=== PATIENT | male | born 1945 | race Caucasian/White ===

== ENCOUNTER 2019-03-25 10:09 | Emergency (ER) | payer MEDICARE, BC ==
[2019-03-25] MEDS ORDERED: Levofloxacin 500 MG Tab PO ONE (11:09)
[2019-03-25] MEDS ORDERED: Ondansetron 4 MG/2 ML SDV IVPUSH ONE (11:10)
[2019-03-25] MEDS ORDERED: Acetaminophen 325 MG Tab PO PRN (11:10)
--- NOTE | 2019-03-25 11:11 | EDM.PDOC ---
ED HPI GENERAL MEDICAL PROBLEM - General Chief Complaint: Genitourinary Problem Stated Complaint: POSS UTI Time Seen by Provider: 03/25/19 11:05 Source of Information: Reports: Patient History Limitations: Reports: No Limitations - History of Present Illness INITIAL COMMENTS - FREE TEXT/NARRATIVE: 73-year-old male presents to the ED with acute onset of flulike symptoms yesterday. She awoke with a migraine headache and then ached all over decreased appetite hardly eat at all yesterday and then started to have severe dysuria urgency and frequency last evening. He estimates that he was up 15 times during the night to void. He has severe urgency and incontinence unfortunately due to the severity of the urgency. He did appreciate the urine did appear slightly bloody in color. He had fever and chills overnight. Remains nauseated this morning. Hasn't eaten yet today. Patient is on long-term Coumadin therapy for one Leiden factor mutation. He has had multiple DVTs and PE once. Onset: Gradual Onset Date: 03/24/19 (Awoke with a migraine and flulike symptoms yesterday. He presents he had a low-grade fever today and has a definite fever.) Duration: Day(s):, Getting Worse (1 day.) Location: Reports: Abdomen, Generalized (Suprapubic abdominal pain.) Quality: Reports: Ache (And anorexia since yesterday.) Severity: Severe (Severe urgency and frequency.) Improves with: Reports: None Worsens with: Reports: None Context: Denies: Activity, Exercise, Lifting, Sick Contact, Trauma, Other Associated Symptoms: Reports: Fever/Chills, Headaches, Loss of Appetite, Malaise , Nausea/Vomiting, Weakness. Denies: Confusion, Chest Pain, Cough, cough w sputum, Diaphoresis, Rash, Seizure (Nausea without vomiting), Shortness of Breath, Syncope Treatments DIGESTER: Reports: Other (see below) (None.) Penis Pain Score (Numeric/FACES): 2 - Related Data Allergies Allergy/AdvReac Type Severity Reaction Status Date / Time No Known Allergies Allergy Verified 03/25/19 10:20 Home Meds: Home Meds [place] 03/25/19 [History] Cinnamon [Cinnamon Oil] 1 cap PO DAILY 03/25/19 [History] Fish Oil/[place]-3 Fatty Acids [Fish Oil 1,000 MG] 100 gm PO DAILY 03/25/19 [ History] Flaxseed Oil [Flax Oil] 1 cap PO DAILY 03/25/19 [History] Folic Acid 2 mg PO DAILY 03/25/19 [History] Montelukast Sodium [Singulair] 10 mg PO BEDTIME 03/25/19 [History] Omeprazole 20 mg PO DAILY 03/25/19 [History] Onabotulinumtoxina [Botox] 03/25/19 [History] Phenazopyridine HCl [Pyridium] 100 mg PO Q6HR PRN #6 tablet 03/25/19 [Rx] Warfarin Sodium [Coumadin] 7.5 mg PO DAILY 03/25/19 [History] levoFLOXacin [Levaquin] 500 mg PO DAILY #9 tab 03/25/19 [Rx] metFORMIN HCl [Metformin HCl] 100 mg PO BID 03/25/19 [History] Past Medical History HEENT History: Reports: Impaired Vision Cardiovascular History: Reports: Blood Clots/VTE/DVT, High Cholesterol Gastrointestinal History: Reports: GERD Genitourinary History: Reports: UTI, Recurrent Neurological History: Reports: Migraines Endocrine/Metabolic History: Reports: Diabetes, Type II Hematologic History: Reports: Bleeding Disorder Other Hematologic History: 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 He was on Coumadin 7.5 mg daily for many years. - Infectious Disease History Infectious Disease History: Reports: Chicken Pox, Measles, Mumps - Past Surgical History HEENT Surgical History: Reports: LASIK, Oral Surgery Musculoskeletal Surgical History: Reports: Shoulder Surgery Social & Family History - Family History Family Medical History: Noncontributory - Tobacco Use Smoking Status *Q: Former Smoker Used Tobacco, but Quit: Yes Month/Year Tobacco Last Used: 10/1976 - Caffeine Use Caffeine Use: Reports: Coffee - Recreational Drug Use Recreational Drug Use: No - Living Situation & Occupation Living situation: Reports: Occupation: Retired ED ROS GENERAL - Review of Systems Review Of Systems: See Below Constitutional: Reports: Fever, Chills, Malaise, Weakness, Fatigue, Decreased Appetite HEENT: Reports: No Symptoms Respiratory: Reports: No Symptoms Cardiovascular: Reports: Blood Pressure Problem. Denies: Claudication, Dyspnea on Exertion, Edema, Lightheadedness, Orthopnea Endocrine: Reports: Fatigue GI/Abdominal: Reports: Abdominal Pain : Reports: Dysuria, Frequency, Urgency, Other (Suprapubic abdominal pain. He does not make it to the bathroom in time due to the urgency.) Musculoskeletal: Reports: Back Pain Skin: Reports: No Symptoms (Mild low back pain) Neurological: Reports: No Symptoms Psychiatric: Reports: No Symptoms Hematologic/Lymphatic: Reports: No Symptoms Immunologic: Reports: No Symptoms ED EXAM, RENAL/ - Physical Exam Exam: See Below Exam Limited By: No Limitations General Appearance: Alert, WD/WN, Mild Distress, Other (Patient does feel quite warm to palpation. Temperatures 37.4 as recorded by the nurses. Pulse is 97. Pulse oximetry is 97 BP 1 4881.) Eye Exam: Bilateral Eye: Normal Inspection Throat/Mouth: Perioral Cyanosis, Other Head: Atraumatic Neck: Normal Inspection (Tongue and mouth are mildly dry.), Supple, Non-Tender, Full Range of Motion. No: Lymphadenopathy (L), Lymphadenopathy (R) Respiratory/Chest: No Respiratory Distress, Lungs Clear, Normal Breath Sounds, No Accessory Muscle Use, Chest Non-Tender Cardiovascular: Normal Peripheral Pulses, Regular Rate, Rhythm, No Edema, No Gallop, No Murmur, No Rub GI/Abdominal: Normal Bowel Sounds, Soft, No Organomegaly, No Abnormal Bruit, No Mass, Pelvis Stable, Tender, Other (Has had previous laparoscopic cholecystectomy) (Male) Exam: No Hernia Back Exam: Normal Inspection, Full Range of Motion. No: CVA Tenderness (L), CVA Tenderness (R) Extremities: Normal Inspection, Normal Range of Motion, Non-Tender, No Pedal Edema Neurological: Alert, Oriented, CN II-XII Intact, Normal Cognition, Normal Gait Psychiatric: Normal Affect, Normal Mood Skin Exam: Warm, Dry, Intact, Normal Color, No Rash Course - Vital Signs Last Recorded V/S: Last Vital Signs Temp 37.4 C 03/25/19 11:23 Pulse 97 03/25/19 10:17 Resp 16 03/25/19 10:17 BP 148/81 H 03/25/19 10:17 Pulse Ox 97 03/25/19 10:17 - Orders/Labs/Meds Orders: Active Orders 24 hr Category Date Time Status CULTURE BLOOD [BC] Stat Lab 03/25/19 11:30 Received CULTURE BLOOD [BC] Stat Lab 03/25/19 11:50 Received CULTURE URINE [RM] Routine Lab 03/25/19 11:15 Received Acetaminophen [Tylenol] Med 03/25/19 11:10 Active 975 mg PO Q4H PRN Dextrose 5%-0.9% NaCl [Dextrose 5%-Normal Saline] 1,000 Med 03/25/19 11:15 Active ml IV ASDIRECTED Phenazopyridine [Urinary Pain Relief] Med 03/25/19 13:00 Active 95 mg PO TIDPC cefTRIAXone [Rocephin] 2 gm Med 03/25/19 11:15 Active Sodium Chloride 0.9% [Normal Saline] 100 ml IV Q24H Blood Culture x2 Reflex Set [OM.PC] Stat Oth 03/25/19 11:07 Ordered Medication Orders Acetaminophen (Tylenol) 975 mg PO Q4H PRN PRN Reason: Pain Last Admin: 03/25/19 11:23 Dose: 975 mg Dextrose/Sodium Chloride (Dextrose 5%-Normal Saline) 1,000 mls @ 500 mls/hr IV ASDIRECTED [facility] Last Admin: 03/25/19 11:31 Dose: 500 mls/hr Ceftriaxone Sodium 2 gm/ (Sodium Chloride) 100 mls @ 200 mls/hr IV Q24H [facility] Last Admin: 03/25/19 11:31 Dose: 200 mls/hr Phenazopyridine HCl (Urinary Pain Relief) 95 mg PO TIDPC [facility] Last Admin: 03/25/19 11:23 Dose: 95 mg Labs: Laboratory Tests 03/25/19 03/25/19 03/25/19 Range/Units 11:15 11:30 11:30 WBC 12.73 H (4.23-9.07) K/mm3 RBC 4.37 L (4.63-6.08) M/mm3 Hgb 13.2 L (13.7-17.5) gm/dl Hct 37.1 L (40.1-51.0) % MCV 84.9 (79.0-92.2) fl MCH 30.2 (25.7-32.2) pg MCHC 35.6 H (32.2-35.5) g/dl RDW Std Deviation 42.3 (35.1-43.9) fL Plt Count 112 L (163-337) K/mm3 MPV 10.6 (9.4-12.3) fl Neutrophils % (Manual) 77 H (40-60) % Band Neutrophils % 0 (0-10) % Lymphocytes % (Manual) 20 (20-40) % Atypical Lymphs % 0 % Monocytes % (Manual) 3 (2-10) % Eosinophils % (Manual) 0 L (0.8-7.0) % Basophils % (Manual) 0 L (0.2-1.2) Platelet Estimate Adequate RBC Morph Comment Normal PT (9.7-12.0) SECONDS INR Sodium 135 L (136-145) mEq/L Potassium 3.6 (3.5-5.1) mEq/L Chloride 100 (98-107) mEq/L Carbon Dioxide 24 (21-32) mEq/L Anion Gap 14.6 (5-15) BUN 11 (7-18) mg/dL Creatinine 1.4 H (0.7-1.3) mg/dL Est Cr Clr Drug Dosing 50.81 mL/min Estimated GFR (MDRD) 50 (>60) mL/min BUN/Creatinine Ratio 7.9 L (14-18) Glucose 143 H (83-115) mg/dL Lactic Acid (0.4-2.0) mmol/L Calcium 8.3 L (8.5-10.1) mg/dL Total Bilirubin 1.6 H (0.2-1.0) mg/dL AST 15 (15-37) U/L ALT 26 (16-63) U/L Alkaline Phosphatase 54 (46-116) U/L C-Reactive Protein 19.0 H* (<1.0) mg/dL Total Protein 6.7 (6.4-8.2) g/dl Albumin 3.0 L (3.4-5.0) g/dl Globulin 3.7 gm/dL Albumin/Globulin Ratio 0.8 L (1-2) Urine Color Yellow (Yellow) Urine Appearance Slt cloudy H (Clear) Urine pH 6.0 (5.0-8.0) Ur Specific [place] > or = 1.030 (1.005-1.030) Urine Protein 2+ H (Negative) Urine Glucose (UA) Negative (Negative) Urine Ketones 2+ H (Negative) Urine Occult Blood 3+ H (Negative) Urine Nitrite Positive H (Negative) Urine Bilirubin 1+ H (Negative) Urine Urobilinogen 0.2 (0.2-1.0) Ur Leukocyte Esterase 1+ H (Negative) Urine RBC 20-30 H (0-5) /hpf Urine WBC 10-20 H (0-5) /hpf Ur Epithelial Cells 0-5 (0-5) /hpf Urine Bacteria Moderate H (FEW) /hpf Urine Mucus Few (FEW) /hpf 03/25/19 03/25/19 Range/Units 11:30 11:30 WBC (4.23-9.07) K/mm3 RBC (4.63-6.08) M/mm3 Hgb (13.7-17.5) gm/dl Hct (40.1-51.0) % MCV (79.0-92.2) fl MCH (25.7-32.2) pg MCHC (32.2-35.5) g/dl RDW Std Deviation (35.1-43.9) fL Plt Count (163-337) K/mm3 MPV (9.4-12.3) fl Neutrophils % (Manual) (40-60) % Band Neutrophils % (0-10) % Lymphocytes % (Manual) (20-40) % Atypical Lymphs % % Monocytes % (Manual) (2-10) % Eosinophils % (Manual) (0.8-7.0) % Basophils % (Manual) (0.2-1.2) Platelet Estimate RBC Morph Comment PT 16.1 H (9.7-12.0) SECONDS INR 1.51 Sodium (136-145) mEq/L Potassium (3.5-5.1) mEq/L Chloride (98-107) mEq/L Carbon Dioxide (21-32) mEq/L Anion Gap (5-15) BUN (7-18) mg/dL Creatinine (0.7-1.3) mg/dL Est Cr Clr Drug Dosing mL/min Estimated GFR (MDRD) (>60) mL/min BUN/Creatinine Ratio (14-18) Glucose (83-115) mg/dL Lactic Acid 1.8 (0.4-2.0) mmol/L Calcium (8.5-10.1) mg/dL Total Bilirubin (0.2-1.0) mg/dL AST (15-37) U/L ALT (16-63) U/L Alkaline Phosphatase (46-116) U/L C-Reactive Protein (<1.0) mg/dL Total Protein (6.4-8.2) g/dl Albumin (3.4-5.0) g/dl Globulin gm/dL Albumin/Globulin Ratio (1-2) Urine Color (Yellow) Urine Appearance (Clear) Urine pH (5.0-8.0) Ur Specific [place] (1.005-1.030) Urine Protein (Negative) Urine Glucose (UA) (Negative) Urine Ketones (Negative) Urine Occult Blood (Negative) Urine Nitrite (Negative) Urine Bilirubin (Negative) Urine Urobilinogen (0.2-1.0) Ur Leukocyte Esterase (Negative) Urine RBC (0-5) /hpf Urine WBC (0-5) /hpf Ur Epithelial Cells (0-5) /hpf Urine Bacteria (FEW) /hpf Urine Mucus (FEW) /hpf Meds: Medications Generic Name Dose Route Start Last Admin Trade Name Freq PRN Reason Stop Dose Admin Acetaminophen 975 mg 03/25/19 11:10 03/25/19 11:23 Tylenol PO 975 mg Q4H PRN Administration Pain Dextrose/Sodium Chloride 1,000 mls @ 500 mls/hr 03/25/19 11:15 03/25/19 11:31 Dextrose 5%-Normal Saline IV 500 mls/hr ASDIRECTED DREW Administration Ceftriaxone Sodium 2 gm/ 100 mls @ 200 mls/hr 03/25/19 11:15 03/25/19 11:31 Sodium Chloride IV 200 mls/hr Q24H DREW Administration Phenazopyridine HCl 95 mg 03/25/19 13:00 03/25/19 11:23 Urinary Pain Relief PO 95 mg TIDPC DREW Administration Discontinued Medications Generic Name Dose Route Start Last Admin Trade Name Freq PRN Reason Stop Dose Admin Levofloxacin 500 mg 03/25/19 11:09 03/25/19 11:31 Levaquin PO 03/25/19 11:10 500 mg ONETIME ONE Administration Ondansetron HCl 4 mg 03/25/19 11:10 03/25/19 11:31 Zofran IVPUSH 03/25/19 11:11 4 mg ONETIME ONE Administration - Radiology Interpretation Free Text/Narrative:: 73-year-old male presents to the ED with acute onset of flulike symptoms starting yesterday. States he had body aches and he woke with a migraine that went away with Imitrex. He lost his appetite didn't eat hardly at all yesterday. Since 8:00 last night he has voided about 15 times with severe dysuria urgency and frequency. The urgency is bad enough that he sometimes will not make it to the bathroom. This happened to him once in the past. Prostate has been checked yearly and his PSAs remain normal. Apparently has an enlarged prostate. Clinically the patient is febrile. He did have mild chills last night. Still feels nauseated this morning and has not eaten. Plan urinalysis and urine culture. IV will be started he will be given D5 normal saline at 500 mils per hour. He will receive Pyridium 95 mg by mouth. Tylenol 975 mg by mouth for fever relief. Rocephin 2 g IV for initial and Coumadin of urinary tract infection and Levaquin 500 by mouth. A septic workup will be done. - Re-Assessments/Exams Free Text/Narrative Re-Assessment/Exam: 03/25/19 12:42 Lab reveals an elevated white count at 12.73. 77% neutrophils with no band cells reported. Hemoglobin is 13.2 with hematocrit of 37.1. Platelet counts 112,000. PT is 16.1 with an INR subtherapeutic at 1.51. Sodium was 135 with a potassium of 3.6. Chloride is 100 with a bicarbonate 24. Anion gap is 14.6. B1 is 11 with a creatinine of 1.4. GFR is 50. Glucose 143. Lactic acid 1.8. Calcium 8.3. Bilirubin is slightly elevated at 1.6. AST is 15 with an ALT of 26. Alk phosphatase is 54. Elevated bilirubin is due to Gilbert`s syndrome. CRP is markedly elevated at 19.0. Total protein is 6.7 with albumin fraction of 3.0. Urinalysis is slightly cloudy reveals 2+ proteinuria 2+ ketones 3+ occult blood positive nitrate 1+ bilirubin 1+ leukocyte esterase. Slide shows 20-30 RBCs per high-power field and 10-20 WBCs per high-power field with moderate bacteria evident. 03/25/19 12:46 test the findings with the patient. He is advised that systemically has an infection. At this time he would like to try outpatient therapy versus coming into the hospital. Return to the hospital if he develops nausea vomiting or is unable to eat or take keep his medication down. Her Levaquin 500 mg once daily for another 9 days starting tomorrow. Tylenol 650 mg every 4-6 hours necessary for fever relief. Just having a repeat urinalysis done 7 days after finishing antibiotic therapy. Departure - Departure Time of Disposition: 12:47 Disposition: Home, Self-Care 01 Condition: Fair Clinical Impression: Upper urinary tract infection, Prostatitis syndrome - Discharge Information *PRESCRIPTION DRUG MONITORING PROGRAM REVIEWED*: Not Applicable *COPY OF PRESCRIPTION DRUG MONITORING REPORT IN PATIENT JOVANY: Not Applicable Prescriptions: Phenazopyridine HCl [Pyridium] 100 mg PO Q6HR PRN #6 tablet PRN Reason: Relief of dysuria levoFLOXacin [Levaquin] 500 mg PO DAILY #9 tab Instructions: Pyelonephritis, Adult, [id number], Prostatitis, [id number] Referrals: PCP,Not In Area [Primary Care Provider] - Forms: ED Department Discharge Additional Instructions: Evaluation the emergent today in regards to acute onset of flulike symptoms yesterday morning associate with decreased appetite. He then developed significant dysuria urgency and frequency of urine passage last night. On examination you do have a fever in the ED. Lab work reveals an elevated white count at 12.93 and a elevated CRP at 19 suggesting you have a sig significant systemic infection. You are treated in the ED with 2 g of Rocephin and Levaquin 500 mg orally. As discussed with you prefer to try things as an outpatient versus coming into the hospital at this time. Treatment is to try and drink plenty of fluids. Suggest Gatorade or Powerade as it's very similar to IV fluid. He will need a metabolic Levaquin 500 mg once daily for the next tablet due tomorrow morning. Continue Tylenol 650 mg every 4-6 hours needed for fever and body ache relief. Return to the hospital if you develop severe rigors or chills or nausea or vomiting and unable to keep down any medication. Otherwise expect marked improvement in symptoms over the next 48 hours. Of note her Coumadin time today was subtherapeutic at 1.51 but this may be where they want you to be i.e. mildly elevated INR to prevent DVT. Think medication that you are taking i.e. Levaquin will elevate your PT/INR as well Tylenol. It is low enough at this point time that you do not need to have it rechecked in 5 days time. Work should be rechecked in 2 weeks' time. - My Orders Last 24 Hours: My Active Orders 03/25/19 11:07 Blood Culture x2 Reflex Set [OM.PC] Stat 03/25/19 11:10 Acetaminophen [Tylenol] 975 mg PO Q4H PRN 03/25/19 11:15 CULTURE URINE [RM] Routine Dextrose 5%-0.9% NaCl [Dextrose 5%-Normal Saline] 1,000 ml IV ASDIRECTED cefTRIAXone [Rocephin] 2 gm Sodium Chloride 0.9% [Normal Saline] 100 ml IV Q24H 03/25/19 11:30 CULTURE BLOOD [BC] Stat 03/25/19 11:50 CULTURE BLOOD [BC] Stat 03/25/19 13:00 Phenazopyridine [Urinary Pain Relief] 95 mg PO TIDPC - Assessment/Plan Last 24 Hours: My Active Orders 03/25/19 11:07 Blood Culture x2 Reflex Set [OM.PC] Stat 03/25/19 11:10 Acetaminophen [Tylenol] 975 mg PO Q4H PRN 03/25/19 11:15 CULTURE URINE [RM] Routine Dextrose 5%-0.9% NaCl [Dextrose 5%-Normal Saline] 1,000 ml IV ASDIRECTED cefTRIAXone [Rocephin] 2 gm Sodium Chloride 0.9% [Normal Saline] 100 ml IV Q24H 03/25/19 11:30 CULTURE BLOOD [BC] Stat 03/25/19 11:50 CULTURE BLOOD [BC] Stat 03/25/19 13:00 Phenazopyridine [Urinary Pain Relief] 95 mg PO TIDPC
[2019-03-25] MEDS ORDERED: cefTRIAXone 2 GM in Sodium Chloride 0.9% 100 ML IV SCH (11:15)
[2019-03-25] MEDS ORDERED: Dextrose 5%-0.9% NaCl 1,000 ML IV SCH (11:15)
[2019-03-25] MEDS ORDERED: Phenazopyridine 95 MG Tab PO SCH (13:00)
== END 2019-03-25 13:17 | disposition home or self-care (01) ==
LOC: JD.ED 10:09
DX: N39.0 Urinary tract infection, site not specified (principal); N41.9 Inflammatory disease of prostate, unspecified; K21.9 Gastro-esophageal reflux disease without esophagitis; E11.9 Type 2 diabetes mellitus without complications; D68.51 Activated protein C resistance; Z86.711 Personal history of pulmonary embolism; Z86.718 Personal history of other venous thrombosis and embolism; Z87.891 Personal history of nicotine dependence; Z79.01 Long term (current) use of anticoagulants; Z79.899 Other long term (current) drug therapy; Z79.84 Long term (current) use of oral hypoglycemic drugs
CPT/HCPCS: 36415; 80053; 81001; 83605; 85007; 85027; 85610; 86140; 87040; 87086; 96361; 96365; 96375; 99283; A9270; J0696; J2405; J7030; J7042